=== PATIENT | female | born 1975 | race Caucasian/White ===

== ENCOUNTER 2017-12-03 07:04 | Day surgery (SDC) | payer BC ==
[2017-12-03] MEDS: morphine 2 MG INJ IV ×2 (12:26→15:48)
[2017-12-03] MEDS ORDERED: FENTAnyl 50 MCG/ML VIAL IV ×2 (15:30)
[2017-12-03] MEDS ORDERED: HYDROmorphONE 1 MG/5 ML IV SYRINGE IV ×3 (15:30)
[2017-12-03] MEDS ORDERED: ALBUTEROL 0.083% (NEB) 2.5 MG/3 ML AMP HHN (15:30)
[2017-12-03] MEDS ORDERED: ONDANSETRON 4 MG INJ IV (15:30)
[2017-12-03] MEDS ORDERED: DIPHENHYDRAMINE 50 MG INJ IV (15:30)
[2017-12-03] MEDS ORDERED: FENTAnyl 50 MCG/ML VIAL (17:00)
[2017-12-03] MEDS ORDERED: CEFAZOLIN 1 GM INJ (17:19)
[2017-12-03] MEDS ORDERED: ROCURONIUM 50 MG INJ (17:19)
[2017-12-03] MEDS ORDERED: PROPOFOL 20 ML (17:19)
[2017-12-03] MEDS ORDERED: SUCCINYLCHOLINE CHLORIDE 100 MG/5 ML SYG IV (17:19)
[2017-12-03] MEDS ORDERED: LIDOCAINE 100 MG SYRINGE (17:19)
[2017-12-03] MEDS ORDERED: DEXAMETHASONE 4 MG/ML 1 ML INJ (17:20)
[2017-12-03] MEDS ORDERED: SUGAMMADEX SODIUM 200 MG/2 ML VIAL IV (17:21)
[2017-12-03] MEDS: BUPIVACAINE 0.25% (MPF) 30 ML INJ (17:34)
[2017-12-03] MEDS: FENTAnyl 50 MCG/ML VIAL IV ×2 (18:16→19:02)
[2017-12-03] MEDS: METOCLOPRAMIDE 10 MG INJ IV (18:17)
[2017-12-03] MEDS: MEPERIDINE 25 MG INJ IV (18:17)
[2017-12-03] MEDS: HYDROCODONE/APAP (5/325) TAB PO (18:21)
== END 2017-12-03 19:30 | disposition home or self-care (01) ==
LOC: SDS 07:04
DX: D24.2 Benign neoplasm of left breast (principal)
CPT/HCPCS: 14001; 88307

== ENCOUNTER 2018-10-18 17:39 | Emergency (ER) | payer BC ==
[2018-10-18] MEDS: KETOROLAC 30 MG INJ IM (18:36)
[2018-10-18] MEDS: DEXAMETHASONE 10 MG/ML 1 ML INJ IM (18:36)
== END 2018-10-18 19:04 | disposition home or self-care (01) ==
LOC: FTE 17:39
DX: M54.5 Low back pain (principal); F17.210 Nicotine dependence, cigarettes, uncomplicated
CPT/HCPCS: 96372; 99284-25